=== PATIENT | male | born 1940 | race Caucasian/White ===

== ENCOUNTER 2016-09-13 18:16 | Emergency (ER) | payer MEDICARE, BC ==
[2016-09-13 18:44] VITALS: BP 126/91
--- NOTE | 2016-09-13 19:36 | RAD ---
Indication: Cough. 2 views of the chest are reviewed and compared to previous exam dated September 01, 2015. There is now multifocal area of infiltrate in the right upper lobe. There may be blunting of the costophrenic angle on the left suggestive of a small pleural effusion. No pneumothorax is noted. IMPRESSION: Airspace disease in the right upper lobe consistent with right upper lobe pneumonia in the hyperinflated lung sahni.
[2016-09-13] MEDS ORDERED: Azithromycin TAB* 250 MG PO ONE (19:56)
--- NOTE | 2016-09-13 20:09 | UC ---
Respiratory Complaint HPI - HPI Summary HPI Summary: COUGH FOR TWO WEEKS. HX OF ASTHMA. TREATED ON 09/09/[address] LANDIS. YESTERDAY AND TODAY DEVELOPED FEVERS. TOLD BY [facility] OFFICE TO SEEK EVALUATION AT OR ED. ALSO EARS FULL OF WAX. - History of Current Complaint Chief Complaint: UCRespiratory Stated Complaint: COUGH Time Seen by Provider: 09/13/16 19:12 Hx Obtained From: Patient Onset/Duration: Gradual Onset, Lasting Weeks, Still Present Timing: Intermittent Episodes Severity Initially: Mild Severity Currently: Moderate Character: Cough: Nonproductive Associated Signs And Symptoms: Positive: Fever, Chills, URI, Hoarseness. Negative: Calf Pain, Calf Swelling - Risk Factors Pulmonary Embolism Risk Factors: Negative Cardiac Risk Factors: Negative Pseudomonas Risk Factors: Negative Tuberculosis Risk Factors: Negative - Allergies/Home Medications Allergies/Adverse Reactions: Allergies Allergy/AdvReac Type Severity Reaction Status Date / Time Penicillins Allergy See Comment Verified 09/13/16 18:44 Home Medications: Home Medications DOXYcycline CAP(*) [DOXYcycline 100MG CAP(*)] 09/13/16 [History] PMH/Surg Hx/FS Hx/Imm Hx Previously Healthy: Yes Cardiovascular History Of: Reports: Cardiac Disorders Respiratory History Of: Reports: Asthma - Surgical History Surgical History: None - Family History Known Family History: Negative: Respiratory Disease - Social History Lives: With Family Alcohol Use: Rare Alcohol Amount: a glass of red wine Substance Use Type: None Smoking Status (MU): Never Smoked Tobacco - Immunization History Most Recent Tetanus Shot: UNKNOWN Review of Systems Constitutional: Fever, Chills, Fatigue Skin: Negative Eyes: Negative ENT: Negative Respiratory: Shortness Of Breath, Cough Cardiovascular: Negative Gastrointestinal: Negative Genitourinary: Negative Motor: Negative Neurovascular: Negative Musculoskeletal: Negative Neurological: Negative Psychological: Negative All Other Systems Reviewed And Are Negative: Yes Physical Exam Triage Information Reviewed: Yes Appearance: Well-Appearing, No Pain Distress, Well-Nourished Vital Signs: Initial Vital Signs Temp 98.3 F 09/13/16 18:40 Pulse 62 09/13/16 18:40 Resp 18 09/13/16 18:40 BP 126/91 09/13/16 18:40 Pulse Ox 98 09/13/16 18:40 Vital Signs Reviewed: Yes Eye Exam: Normal ENT Exam: Normal ENT: Positive: Normal ENT inspection, Hearing grossly normal, Pharynx normal, TMs normal Dental Exam: Normal Neck exam: Normal Respiratory: Positive: Chest non-tender, Lungs clear, No respiratory distress, No accessory muscle use, Wheezing - SCANT Cardiovascular Exam: Normal Cardiovascular: Positive: RRR, No Murmur, Pulses Normal Abdominal Exam: Normal Abdomen Description: Positive: Nontender, No Organomegaly Musculoskeletal Exam: Normal Musculoskeletal: Positive: Strength Intact, ROM Intact Neurological Exam: Normal Psychological Exam: Normal Psychological: Positive: Normal Response To Family Skin Exam: Normal UC Diagnostic Evaluation - Laboratory O2 Sat by Pulse Oximetry: 98 Respiratory Course/Dx - Differential Dx/Diagnosis Differential Diagnosis/HQI/PQRI: Bronchitis, SARS, Sinusitis Provider Diagnoses: RIGHT UPPER LOBE PNEUMONIA Discharge - Discharge Plan Condition: Stable Disposition: HOME Prescriptions: Azithromycin TAB* [Zithromax TAB (Z-TEENA) 250 mg #6 tabs] 250 mg PO DAILY #4 tab Patient Education Materials: Cerumen Impaction (ED), Pneumonia (ED) Referrals: Ochoa Norton MD [Primary Care Provider] -
== END 2016-09-13 20:17 | disposition home or self-care (01) ==
LOC: UCEAST 18:16
DX: H10.9 Unspecified conjunctivitis (principal); J06.9 Acute upper respiratory infection, unspecified
CPT/HCPCS: 71020; 99213; A9270-GY; G0463

== ENCOUNTER 2019-06-30 06:16 | Emergency (ER) | payer MEDICARE, BC ==
--- NOTE | 2019-06-30 06:29 | ED ---
HPI Chest Pain - HPI Summary HPI Summary: 78 year old M presenting to [facility] via EMS with a chief complaint of intermittent right sided chest pain since 19:00 last night. The patient rates the pain 3/10 in severity at the worst and 1/10 in severity now. Symptoms aggravated by nothing. Symptoms alleviated by nothing. Patient denies radiation of his pain or taking Aspirin today. No other symptoms reported, including fever , cough, or shortness of breath. The patient also denies previous occurrence of such symptoms. He reports occasional alcohol use. He notes irregular heart beat and Metoprolol use. He follows with Dr. Villa from cardiology but otherwise has no known cardiac history. Medication list reviewed. Allergy list reviewed. - History of Current Complaint Chief Complaint: EDChestPainROMI Time Seen by Provider: 06/30/19 06:22 Hx Obtained From: Patient Onset/Duration: Started Hours Ago Timing: Intermittent Initial Severity: Mild Current Severity: None Pain Intensity: 1 Pain Scale Used: 0-10 Numeric Chest Pain Location: Discrete at: - Right Chest Pain Radiates: No Aggravating Factor(s): Nothing Alleviating Factor(s): Nothing Associated Signs and Symptoms: Positive: Chest Pain - Allergy/Home Medications Allergies/Adverse Reactions: Allergies Allergy/AdvReac Type Severity Reaction Status Date / Time Penicillins Allergy Rash Verified 06/30/19 06:32 tamsulosin Allergy felt Verified 06/30/19 06:32 "weird", breathing trouble Home Medications: Home Medications Cholecalciferol TAB* [Vitamin D TAB*] 1,000 unit PO DAILY 11/11/18 [History Confirmed 01/18/19] Metoprolol Succinate XL TAB* [Toprol XL TAB*] 25 mg PO DAILY 11/11/18 [History Confirmed 01/18/19] Mometasone 220 MCG MDI * [Asmanex 220 MCG MDI *] 1 puff INH BID 11/11/18 [ History Confirmed 01/18/19] Pravastatin Sodium 10 mg PO QPM 11/11/18 [History Confirmed 01/18/19] Selenium 100 mcg PO DAILY 11/11/18 [History Confirmed 01/18/19] Meloxicam(NF) [Mobic(NF)] 15 mg PO DAILY 01/18/19 [History Confirmed 01/18/19] PMH/Surg Hx/FS Hx/Imm Hx Endocrine/Hematology History: Denies: Hx Diabetes Cardiovascular History: Reports: Other Cardiovascular Problems/Disorders - "irregular heart beat" Respiratory History: Reports: Hx Asthma EENT History: Denies: Hx Deafness - Surgical History Surgical History: None Infectious Disease History: No Infectious Disease History: Denies: Traveled Outside the [place] in Last 30 Days - Family History Known Family History: Negative: Cardiac Disease, Hypertension, Diabetes, Respiratory Disease - Social History Alcohol Use: Rare Alcohol Amount: a glass of red wine Hx Substance Use: No Substance Use Type: Reports: None Hx Tobacco Use: No Smoking Status (MU): Never Smoked Tobacco - Additional Comments History Additional Comments: "irregular heart beat", asthma Review of Systems - ROS Summary Review of Systems Summary: Home Medications Medication Instructions Recorded Confirmed Type Cholecalciferol TAB* [Vitamin D 1,000 unit PO DAILY 11/11/18 01/18/19 History TAB*] Metoprolol Succinate XL TAB* 25 mg PO DAILY 11/11/18 01/18/19 History [Toprol XL TAB*] Mometasone 220 MCG MDI * [Asmanex 1 puff INH BID 11/11/18 01/18/19 History 220 MCG MDI *] Pravastatin Sodium 10 mg PO QPM 11/11/18 01/18/19 History Selenium 100 mcg PO DAILY 11/11/18 01/18/19 History Meloxicam(NF) [Mobic(NF)] 15 mg PO DAILY 01/18/19 01/18/19 History Negative: Fever Positive: Chest Pain Negative: Shortness Of Breath, Cough All Other Systems Reviewed And Are Negative: Yes Physical Exam - Summary Physical Exam Summary: General: Well-developed, Well-nourished male. No acute distress. HEENT: Normocephalic, Atraumatic. Eyes: Conjuctiva normal, PERRL. Oropharynx: Clear, mucous membranes moist, (-) exudates. Neck: Soft, FROM, (-) lymphadenopathy, (-) thyromegaly, (-) JVD. Cardiovascular: Normal sinus rhythm, (-) murmur. Mild tenderness to right sternal border. Lungs: Clear to auscultation bilaterally (-) wheezes, (-) rales, (-) rhonchi. Abdomen: Soft, non-tender, non-distended, (-) organomegaly, normal bowel sounds. Back: (-) CVA tenderness Extremities: No edema. Skin: Warm, dry, (-) rash. Neuro: Alert and oriented x3, moves all extremities equally. No ataxia. No gait disturbance. No sensory deficit. Normal strength, normal sensation. Psychiatric: Mood normal, affect normal. Triage Information Reviewed: Yes Vital Signs On Initial Exam: Initial Vitals Temp Pulse Resp BP Pulse Ox 97.7 F 64 16 156/78 99 06/30/19 06:20 06/30/19 06:20 06/30/19 06:20 06/30/19 06:20 06/30/19 06:20 Vital Signs Reviewed: Yes Procedures - Sedation Patient Received Moderate/Deep Sedation with Procedure: No Diagnostics - Vital Signs Vital Signs Temp Pulse Resp BP Pulse Ox 06/30/19 06:20 97.7 F 64 16 156/78 99 - Laboratory Result Diagrams: 06/30/19 06:24 Lab Statement: Any lab studies that have been ordered have been reviewed, and results considered in the medical decision making process. - EKG 06:33 Cardiac Rate: NL EKG Rhythm: Sinus Rhythm Summary of EKG Findings: EKG at 06:33 reveals normal sinus rhythm with rate of 60 BPM, no acute changes, no ischemic changes. This EKG was reviewed and interpreted by Dr. Jacobson. Chest Pain Course/Dx - Course Course Of Treatment: 78-year-old male presents from home by ambulance with chest pain. He states he started having some mild chest pain on the right chest area last night about 7 PM. has come through the night. Nothing really makes it better or worse that he is noticed. He denies any history of heart disease. At its worst 3 out of 10. Currently a 1 out of 10. Does not radiate. She did not take anything for the pain. Given an aspirin upon arrival. EKG shows no acute ischemic changes. No significant findings on exam. Workup pending. Patient signout change shift. Patient received Aspirin in the ED. - Diagnoses Provider Diagnoses: Chest pain Discharge ED - Sign-Out/Discharge Documenting (check all that apply): Sign-Out Patient Signing out patient TO: Bill Boothe - Pending labs, chest x-ray, and disposition. - Discharge Plan Condition: Stable Referrals: Librado Peter MD [Primary Care Provider] - - Billing Disposition and Condition Condition: STABLE - Attestation Statements Document Initiated by Scribe: Yes Documenting Scribe: Pratima Shane Provider For Whom Filemon is Documenting (Include Credential): Symone Jacobson MD Scribe Attestation: I, Pratima Shane, scribed for Symone Jacobson MD on 06/30/19 at 0653. Scribe Documentation Reviewed: Yes Provider Attestation: The documentation as recorded by the liliibmaria del rosario, Pratima Shane accurately reflects the service I personally performed and the decisions made by me, Symone Jacobson MD Status of Scribe Document: Viewed
[2019-06-30] MEDS ORDERED: Aspirin 81 mg CHEW TAB* 81 MG TAB.CHEW PO ONE (06:30)
[2019-06-30 06:38] LABS: ABS Basophils 0.1 10^3/ul (0-0.2); ABS Eosinophils 0.2 10^3/ul (0-0.6); ABS Lymphocytes 1.9 10^3/ul (1.0-4.8); ABS Monocytes 0.7 10^3/ul (0-0.8); ABS Neutrophils 4.4 10^3/ul (1.5-7.7); Eosinophil % 2.7 %; Hematocrit 40 % (42-52); Hemoglobin 13.3 g/dL (14.0-18.0); Mean Corpuscular HGB Conc 34 g/dL (31-36); Mean Corpuscular Hemoglobin 28 pg (27-31); Mean Corpuscular Volume 84 fL (80-94); Mean Platelet Volume 8.6 fL (7.4-10.4); Platelet Count 201 10^3/uL (150-450); Red Blood Count 4.73 10^6 /uL (4.18-5.48); Red Cell Distribution Width 14 % (10-15); White Blood Count 7.2 10^3/uL (3.5-10.8)
[2019-06-30] MEDS ORDERED: Aspirin 81 mg CHEW TAB* 81 MG TAB.CHEW ONE (06:41)
[2019-06-30 06:47] LABS: Activated Partial Thrombo Time 31.6 seconds (26.0-38.0); INR 1.07 (0.82-1.09)
[2019-06-30 06:57] LABS: ALT 13 U/L (7-52); AST 18 U/L (13-39); Albumin 3.8 g/dL (3.2-5.2); Albumin/Globulin Ratio 1.4 (1-3); Alkaline Phosphatase 95 U/L (34-104); Anion Gap 6 mmol/L (2-11); BUN/Creatinine Ratio 23.5 (8-20); Blood Urea Nitrogen 24 mg/dL (6-24); CO2 Carbon Dioxide 26 mmol/L (22-32); Calcium 9.3 mg/dL (8.6-10.3); Chloride 106 mmol/L (101-111); EGFR African American 85.7 (>60); EGFR Non-African American 70.8 (>60); Globulin 2.7 g/dL (2-4); Glucose 105 mg/dL (70-100); Magnesium 1.8 mg/dL (1.9-2.7); Potassium 4.2 mmol/L (3.5-5.0); Sodium 138 mmol/L (135-145); Total Protein 6.5 g/dL (6.4-8.9)
--- NOTE | 2019-06-30 07:28 | ED ---
Progress - Progress Note Progress Note: Receiving sign-out from Dr. Jacobson pending CXR, labs, and disposition at shift change 0700. CXR impression: No active cardiopulmonary disease is noted. Pending official radiology report. Labs were unremarkable except Hgb 13.3, Hct 40 L, Bun/Creatinine ratio 23.5H, Glucose 105 H, Magnesium 1.8 L,, BNP 116 H. Troponin I and II were within normal limits. Plan for discharge was discussed with the patient and he understands and agrees with this plan. Course/Dx - Course Course Of Treatment: Receiving sign-out from Dr. Jacobson pending CXR, labs, and disposition at shift change 0700. CXR impression: No active cardiopulmonary disease is noted. Pending official radiology report. Labs were unremarkable except Hgb 13.3, Hct 40 L, Bun/Creatinine ratio 23.5H, Glucose 105 H, Magnesium 1.8 L,, BNP 116 H. Troponin I and II were within normal limits. Plan for discharge was discussed with the patient and he understands and agrees with this plan. - Diagnoses Provider Diagnoses: Chest pain Discharge ED - Sign-Out/Discharge Documenting (check all that apply): Patient Departure - Discharge, Receiving Sign-Out Receiving patient FROM: Symone Jacobson - Discharge Plan Condition: Stable Disposition: HOME Patient Education Materials: Chest Pain (ED) Referrals: Librado Peter MD [Primary Care Provider] - 2 Days Additional Instructions: Return to ED with new or worsening symptoms. - Billing Disposition and Condition Condition: STABLE Disposition: Home - Attestation Statements Document Initiated by Filemon: Yes Documenting Scribe: Jonathan Barragan Provider For Whom Filemon is Documenting (Include Credential): Orlin Boothe DO Scribe Attestation: IJonathan, scribed for Orlin Boothe DO on 06/30/19 at 1433. Scribe Documentation Reviewed: Yes Provider Attestation: The documentation as recorded by the Jonathan dias accurately reflects the service I personally performed and the decisions made by , Orlin Boothe DO Status of Scribe Document: Viewed
[2019-06-30 10:31] VITALS: BP 162/81
== END 2019-06-30 10:30 | disposition home or self-care (01) ==
LOC: ED 06:16
DX: R07.89 Other chest pain (principal); J45.909 Unspecified asthma, uncomplicated; Z79.51 Long term (current) use of inhaled steroids; Z88.0 Allergy status to penicillin; Z88.8 Allergy status to other drugs, medicaments and biological substances
CPT/HCPCS: 36415; 71045; 80053; 83605; 83735; 83880; 84484; 85025; 85610; 85730; 93005; 99284; A9270-GY